=== PATIENT | male | born 1975 | race Caucasian/White ===

== ENCOUNTER 2020-05-24 15:58 | Emergency (ER) | payer OTHER ==
[~2020-05-24] VITALS: Ht 170.2 cm; Wt 99.8 kg
--- NOTE | ~2020-05-24 | EMS ---
[facility] [address] [place] [address] EMS Patient Care Report Name: JANES MEDINA Room: [facility] Feroz#: [id number] Admission: 05/24/20 Attend Phys: Discharge: 05/24/20 Date of : 73 Report #: [id number] THIS REPORT FOR: //name// Report Transmitted: 05/24/2020 19:00 EMS Care Summary [facility] Incident [id number] @ 05/24/2020 15:00 Incident Location [address] [place] [address] Patient JANES MEDINA Male, 45 Years 1975 Patient Address [address] [place] [address] Patient History Lung Cancer, Patient Allergies No known allergies, Patient Medications Abilify, Chief Complaint CP Disposition Transported No Lights/Commodore Dispatch Reason Chest Pain (Non-Traumatic) Transported To [facility] Narrative Dispatch: Pt was driven to station for evaluation by his . Tones requested for walk up. C/C: CP; Pt A/O appropriately; moderate distress; able to speak in full sentences. [facility] [address] [place] [address] EMS Patient Care Report Name: JANES MEDINA Room: [facility]#: [id number] Admission: 05/24/20 Attend Phys: Discharge: 05/24/20 Date of : 73 Report #: [id number] HPI/LATRICIA/VIC: Upon Pt arrival to the station; Pt was driven by his . He stated he had been at home not exerted himself and he had a sudden onset of pain in his chest; radiating up his neck; down his left arm into his armpit. Pt stated onset of 1 hour prior to arrival at the station. Rated his pain 8/10. Pt denies any cardiac hx. Pt states additional symptoms were; blurry vision, near syncope, dizziness upon standing. Pt loaded to the cot/secured via seat belt straps; semi montgomery position. Once loaded further assessment performed. Assessment: Primary Airway- Open, Patent Breathing- Non labored, Regular, RA Circulation- Strong, Radial, Regular, Rapid LOC: GCS 15, A/O- x4 Secondary- see flowchart and detailed assessment tab Reason for Transport: Review of systems per symptoms; cardiac monitoring. 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 Radio report given via phone; Verbal report given bedside upon transfer of care in ED with copies of 12 Lead ECG's performed. FAIZA Quintero [id number] Initial Vitals @15:10P: 104,BP: 112/73, @15:44P: 104,BP: 120/76, @15:51P: 102,BP: 120/74, @15:16P: 105,BP: 128/83, @15:21P: 103, @15:14 @15:32P: 107,R: 18,BP: 123/79,Pain: 8/10,SpO2: 93, @15:37P: 105,BP: 123/76,SpO2: 94, @15:54Pain: 0/10,GCS: 15, @15:26P: 108,R: 20,BP: 122/78,Pain: 8/10,GCS: 15,Temp: 98.2F,Glucose: 139,SpO2: 94,Revised Trauma: 12, [place] [address] EMS Patient Care Report Name: JANES MEDINA Room: [facility]#: [id number] Admission: 05/24/20 Attend Phys: Discharge: 05/24/20 Date of : 73 Report #: [id number] @15:27MENTAL:Person Oriented,Time Oriented,Place Oriented,Event Oriented,SKIN:HEENT:Eyes: Right: Other,Eyes: Left: Other,LUNG SOUNDS:ABDOMEN:PELVIS//GI:EXTREMITIES:PULSE:Radial: 2+ Normal,NEURO:@16:11MENTAL:No Abnormalities,SKIN:HEENT:Head/Face: No Abnormalities,LUNG SOUNDS:General: No Abnormalities,ABDOMEN:General: No Abnormalities,PELVIS//GI:EXTREMITIES:PULSE:NEURO:No Abnormalities, Impression Chest Pain / Discomfort Procedures @15:23Aspirin - 324 Milligrams (mg) - OralResponse: Unchanged@15:24Nitro [place] - 0.4 Milligrams (mg) - SublingualResponse: Improved@15:34Nitro [place] - 0.4 Milligrams (mg) - SublingualResponse: Improved@15:44Nitro [place] - 0.4 Milligrams (mg) - SublingualResponse: Improved@15:1412-Lead ECG@15:1612-Lead ECG@15:5412-Lead ECG@15:3212-Lead ECG@15:1012-Lead ECG Timeline 15:00,Call Received 15:00,Dispatched 15:00,En Route 15:00,On Scene 15:00,At Patient 15:10,12-Lead ECG, 15:10,BP: 112/73 M,PULSE: 104,RR: R,SPO2: Ox,ETCO2: ,BG: ,PAIN: ,GCS: , 15:14,12-Lead ECG, 15:14,BP: / M,PULSE: ,RR: R,SPO2: Ox,ETCO2: ,BG: ,PAIN: ,GCS: , 15:16,12-Lead ECG, 15:16,BP: 128/83 M,PULSE: 105,RR: R,SPO2: Ox,ETCO2: ,BG: ,PAIN: ,GCS: , 15:18,Depart Scene 15:21,BP: / M,PULSE: 103,RR: R,SPO2: Ox,ETCO2: ,BG: ,PAIN: ,GCS: , 15:23,Aspirin - 324 Milligrams (mg) - Oral,Response: Unchanged 15:24,Nitro [place] - 0.4 Milligrams (mg) - Sublingual,Response: Improved 15:26,BP: 122/78 M,PULSE: 108,RR: 20 R,SPO2: 94 Ox,ETCO2: ,B,PAIN: 8,GCS: 15, 15:32,12-Lead ECG, 15:32,BP: 123/79 M,PULSE: 107,RR: 18 R,SPO2: 93 Ox,ETCO2: ,BG: ,PAIN: 8,GCS: , 15:34,Nitro [place] - 0.4 Milligrams (mg) - Sublingual,Response: Improved 15:37,BP: 123/76 M,PULSE: 105,RR: R,SPO2: 94 Ox,ETCO2: ,BG: ,PAIN: ,GCS: , 15:44,BP: 120/76 M,PULSE: 104,RR: R,SPO2: Ox,ETCO2: ,BG: ,PAIN: ,GCS: , 15:44,Nitro [place] - 0.4 Milligrams (mg) - Sublingual,Response: Improved 15:51,BP: 120/74 M,PULSE: 102,RR: R,SPO2: Ox,ETCO2: ,BG: ,PAIN: ,GCS: , 15:54,At Destination 15:54,12-Lead ECG, 15:54,BP: / M,PULSE: ,RR: R,SPO2: Ox,ETCO2: ,BG: ,PAIN: 0,GCS: 15, 16:38,[place] [address] EMS Patient Care Report Name: JANES MEDINA Room: [facility]#: [id number] Admission: 05/24/20 Attend Phys: Discharge: 05/24/20 Date of : 73 Report #: [id number] Disclaimer [email or web address] Copyright 2020 [employer] This EMS Care Summary contains data elements from the applicable legal record (which may be displayed differently). It is designed to provide pertinent information for the following purposes: continuity of care, clinical quality, and state data reporting. The complete legal record is available to ED staff and administrators of the receiving hospital in ES's Patient Tracker. All data is provided "as is."
[2020-05-24] MEDS ORDERED: ABILIFY10 MG PO (16:05)
[2020-05-24 16:59] LABS: ABSOLUTE BASOPHILS 0.1 thou/uL (0.0-0.2); ABSOLUTE EOSINOPHILS 0.1 thou/uL (0.0-0.7); ABSOLUTE LYMPHOCYTES 1.6 thou/uL (0.8-5.3); ABSOLUTE MONOCYTES 0.8 thou/uL (0.0-1.2); ABSOLUTE NEUTROPHILS 10.8 thou/uL (1.6-8.1); BASOPHILS 1.1 %; EOSINOPHILS 1.1 %; HEMATOCRIT 44.6 % (42.0-52.0); HEMOGLOBIN 15.2 gm/dL (14.0-18.0); LYMPHOCYTES 11.9 %; MCH 31.5 pg (26.0-34.0); MCHC 34.1 g/dL (28.0-37.0); MCV 92.5 fL (80.0-100.0); MPV 8.5 fl. (7.2-11.1); NUCLEATED RBCS 0 /100WBC; PLATELET COUNT* 313 thou/uL (150-400); POLYS 79.9 %; RBC 4.82 mil/uL (4.50-6.00); RDW-CV 14.5 % (10.5-14.5); WBC 13.5 thou/uL (4.0-11.0)
[2020-05-24 17:03] LABS: CALCIUM 8.2 mg/dL (8.5-10.1); CREATININE 1.3 mg/dL (0.6-1.3); POTASSIUM 4.3 mmol/L (3.5-5.1)
[2020-05-24 17:07] LABS: ALBUMIN 3.5 g/dL (3.4-5.0); TOTAL BILIRUBIN 0.2 mg/dL (<0.1-1.0); TOTAL PROTEIN 7.2 g/dL (6.4-8.2)
[2020-05-24] MEDS ORDERED: ASA81BEC PO (18:37)
[2020-05-24 18:52] VITALS: BP 125/70
--- NOTE | 2020-05-25 10:04 | EKG ---
[place] [address] ELECTROCARDIOGRAM REPORT Name: JANES MEDINA Room: [facility]#: [id number] Admission: 05/24/20 Attend Phys: Discharge: 05/24/20 Date of : 73 Date of Service: 05/24/20 160 Report #: [id number] THIS REPORT FOR: //name// [facility] ED Test Date: 2020-05-24 Test Time: 16:01:05 Pat Name: JANES MEDINA Department: Room: Gender: Rn Oncology: : 1975 Requested By: Sagar Terry Order Number: [id number] MD: Adithya Wilson Measurements Intervals [place] Rate: 97 P: 67 GA: 132 QRS: 27 QRSD: 79 T: 48 QT: 333 QTc: 423 Interpretive Statements Sinus rhythm Probable left atrial enlargement No previous ECG available for comparison Electronically Signed On 05-25-2020 10:04:41 CDT by Adithya Wilson [email or web address] <ELECTRONICALLY SIGNED> By: Adithya Wilson MD, [facility] 05/25/20 1004 1601 00 Adithya Wilson MD, FACC /EPI
== END 2020-05-24 18:53 | disposition home or self-care (01) ==
LOC: M.ERS 15:58
PROVIDERS: Physician Assistant
DX: R07.89 Other chest pain (principal); Z90.49 Acquired absence of other specified parts of digestive tract